=== PATIENT | male | born 1995 | race Caucasian/White ===

== ENCOUNTER 2019-09-12 08:55 | Outpatient (CLI) | payer BC, SELFPAY ==
[2019-09-13 11:53] LABS: COVID-19 RT-PCR UVMMC Result Negative (Negative)
== END 2019-09-12 09:15 ==
PROVIDERS: Visit Provider Family Medicine
DX: J02.9 Acute pharyngitis, unspecified (principal)
CPT/HCPCS: U0003

== ENCOUNTER 2020-01-20 12:06 | Inpatient (IN) | payer BC, SELFPAY ==
[2020-01-20] VITALS (129 sets, daily range): BP systolic 57–127; BP diastolic 35–96; PULSE 56–109; RESP 11–30; TEMP 36.4–36.9; O2SAT 79–99
--- NOTE | 2020-01-20 12:15 | RT.EKG_ITS ---
APPROVED REPORT Exam: Resting ECG Patient Location: E HR:79 bpm ECG Measurements Heart Rate 79 AXIS TN 155 P 6 QRSd 82 QRS 33 QT 361 T 34 QTc 414 Conclusion Sinus rhythm...normal P axis, V-rate 60- 99 ST elevation suggests acute pericarditis...ST >0.10mV, ant/lat/inf' STEMI
--- NOTE | 2020-01-20 12:30 | DI.CT_ITS ---
EXAM: CT CHEST PE CTA CLINICAL HISTORY: substernal chest pain, r/o PE. TECHNIQUE: Imaging Protocol: Axial CT angiography was performed with multi-slice acquisition and mu lti-planar and/or 3D reconstructions. CONTRAST MATERIAL: Intravenous: Omnipaque 350 Contrast volume:100 mL COMPARISON: No exams were available for comparison FINDINGS: Pulmonary Arteries: No evidence of filling defect to suggest pulmonary emboli. Tracheobronchial tree: Patent where visualized. Mediastinum and Lilly: No dominant adenopathy or fluid collection. Pulmonary parenchyma: No consolidation or dominant measurable mass. No architectural distortion. Pleura: No effusion or pneumothorax. Heart: The heart is not dilated. No coronary artery calcifications are seen. No pericardial effusion. Aorta: Thoracic aorta non-dilated. Upper abdomen: Unremarkable. Bones: Normal. Soft tissues: Unremarkable. IMPRESSION: No evidence of pulmonary embolism, thoracic aortic dissection or aneurysm. RADIATION DOSE DELIVERED: 456.28mGy.cm Total DLP DATA REPOSITORY: All CT scans at this facility are submitted to the National Radiology Data Registry (NRDR) Dose Index Registry (DIR) with the [employer] (ACR). RADIATION OPTIMIZATION: All CT scans at this facility use at least one of these dose optimization te chniques: automated exposure control; mA and/or kV adjustment per patient size (includes targeted exa ms where dose is matched to clinical indication); or iterative reconstruction.
--- NOTE | 2020-01-20 12:30 | ED.GENADUL_ITS ---
Discharge Plan Disposition Patient Disposition: [facility] INPATIENT Condition: Stable Discharge Details Clinical Impression: Pericarditis Admit Date/Time: 01/20/20 18:37 Admit Provider: Concepcion West Attending Provider: Concepcion West Primary Care Provider: None,None ED Provider: Rae Christian Discharge Data Discharge Date/Time-TO BE ENTERED AT DEPARTURE: 01/20/20 19:30 Medical Decision Making <Rae Christian DO - Last Filed: 01/22/20 09:13> 1230 -- 24-year-old male with no significant past medical history presents with chest pain with radiation to the shoulder since awakening this morning. Admits to neck pain and headache a few days ago that is since resolved. He denies any cough or fever. EKG notes a rate of 79, sinus with [address] elevation in inferior and anterior lateral leads without reciprocal changes. Concern for STEMI versus pericarditis. Patient has no significant cardiac risk factors and with some preceding musculoskeletal pain, making pericarditis possibly more likely. Screening labs and CT chest obtained. Will give aspirin and Toradol. Case discussed with [facility] cardiology who reviewed images and agree that as there is no reciprocal changes, without cardiac risk factors and considering patient's age, doubt STEMI and do not recommend STEMI treatment or lytics at this time. Requesting CRP and ESR. Recommend repeat EKG stat. 1255 -- Troponin significantly elevated at 6.75. Repeat EKG notes a rate of 79, sinus with slight increase in ST elevation in inferior leads. No reciprocal changes noted. 1305 -- Case discussed again with [facility] cardiology who now agrees with plan for Plavix, heparin and nitro sublingual as needed. Do not recommend lytics at this time. No beds available at this time. 1322 --discussed with [facility] cardiology -feels this is more consistent with perimyocarditis and no lytics recommended. Recommends stopping heparin drip. Attempted to obtain formal echocardiogram but no tech available. Bedside echo done which noted normal cardiac wall motion without evidence of effusion. 1510 --discussed with [facility] cardiology who feels that patient does not require urgent transfer as he feels this is more perimyocarditis. Recommend treatment with colchicine and NSAIDs. 1530 --discussed with [facility] cardiology who accepts patient for transfer but no bed available at this time. Accepting physician Dr. Baker for transfer once a bed available. Does not want colchicine or NSAIDs at this time. Agreeable with plan for stopping heparin drip. Repeat troponin 14.68. No other acute recommendations at this time. Discussed elevation in second troponin with both [facility] and [facility] cardiology and no other acute recommendations or indication for emergent transfer at this time. Discussed with hospitalist who accepts patient for admission pending transfer to [facility]. Medical Records Medical records reviewed: Yes I reviewed the patient's medical records. Imaging Data Radiologic Study: Radiologist's impression: CT CHEST PE CTA CLINICAL HISTORY: substernal chest pain, r/o PE. TECHNIQUE: Imaging Protocol: Axial CT angiography was performed with multi- slice acquisition and multi-planar and/or 3D reconstructions. CONTRAST MATERIAL: Intravenous: Omnipaque 350 Contrast volume:100 mL COMPARISON: No exams were available for comparison FINDINGS: Pulmonary Arteries: No evidence of filling defect to suggest pulmonary emboli. Tracheobronchial tree: Patent where visualized. Mediastinum and Lilly: No dominant adenopathy or fluid collection. Pulmonary parenchyma: No consolidation or dominant measurable mass. No architectural distortion. Pleura: No effusion or pneumothorax. Heart: The heart is not dilated. No coronary artery calcifications are seen. No pericardial effusion. Aorta: Thoracic aorta non-dilated. Upper abdomen: Unremarkable. Bones: Normal. Soft tissues: Unremarkable. IMPRESSION: No evidence of pulmonary embolism, thoracic aortic dissection or aneurysm. Lab Data Lab results reviewed: Yes I reviewed the patient's lab results. Labs: Laboratory Tests Range/Units 01/20/20 01/20/20 01/20/20 12:30 12:30 12:30 WBC (4.4-10.8) 10^3/uL 5.74 RBC (4.36-5.78) 10^6/uL 5.10 Hgb (13.5-17.5) g/dL 15.0 Hct (40.0-50.0) % 45.0 MCV (80-95) fL 88.2 MCH (27.0-33.0) pg 29.4 MCHC (32.0-36.0) % 33.3 RDW (11.8-14.1) % 12.2 Plt Count (130-400) 10^3/uL 265 MPV (8.0-11.0) fL 8.8 Immature Gran % 0.2 Neutrophils % 52.9 Lymphocytes % 23.3 Monocytes % 16.2 Eosinophils % 7.1 Basophils % 0.3 Nucleated RBC % % 0 Absolute Neutrophils (1.2-6.7) 10^3/uL 3.03 Absolute Lymphocytes (1.2-3.4) 10^3/uL 1.34 Absolute Monocytes (0.1-0.8) 10^3/uL 0.93 H Absolute Eosinophils (0.0-0.7) 10^3/uL 0.41 Absolute Basophils (0.0-0.2) 10^3/uL 0.02 ESR (0-15) mm/hr PT (9.3-11.0) sec 10.4 INR (0.9-1.1) 1.0 APTT (21.0-27.5) sec 22.8 Sodium (136-145) mmol/L 141 Potassium (3.5-5.1) mmol/L 4.1 Chloride (98-107) mmol/L 104 Carbon Dioxide (21.0-32.0) mmol/L 27.7 Anion Gap (3-11) mmol/L 9.3 BUN (7-18) mg/dL 14 Creatinine (0.70-1.30) mg/dL 0.92 Estimated GFR/1.73 m2 (mL/min/1.73m2) >= 60.00 Glucose (74-106) mg/dL 90 Calcium (8.5-10.1) mg/dL 8.8 Magnesium (1.8-2.4) mg/dL 2.1 Total Bilirubin (0.2-1.0) mg/dL 0.5 AST (15-37) U/L 84 H ALT (16-63) U/L 187 H Alkaline Phosphatase (46-116) U/L 114 Creatine Kinase (39-308) U/L Troponin I (<0.06) ng/mL 6.75 H* C-Reactive Protein (0.0-0.3) mg/dL Total Protein (6.4-8.2) g/dL 7.3 Albumin (3.4-5.0) g/dL 4.0 Lipase (73-393) U/L Range/Units 01/20/20 01/20/20 01/20/20 12:30 12:30 12:30 WBC (4.4-10.8) 10^3/uL RBC (4.36-5.78) 10^6/uL Hgb (13.5-17.5) g/dL Hct (40.0-50.0) % MCV (80-95) fL MCH (27.0-33.0) pg MCHC (32.0-36.0) % RDW (11.8-14.1) % Plt Count (130-400) 10^3/uL MPV (8.0-11.0) fL Immature Gran % Neutrophils % Lymphocytes % Monocytes % Eosinophils % Basophils % Nucleated RBC % % Absolute Neutrophils (1.2-6.7) 10^3/uL Absolute Lymphocytes (1.2-3.4) 10^3/uL Absolute Monocytes (0.1-0.8) 10^3/uL Absolute Eosinophils (0.0-0.7) 10^3/uL Absolute Basophils (0.0-0.2) 10^3/uL ESR (0-15) mm/hr 8 PT (9.3-11.0) sec INR (0.9-1.1) APTT (21.0-27.5) sec Sodium (136-145) mmol/L Potassium (3.5-5.1) mmol/L Chloride (98-107) mmol/L Carbon Dioxide (21.0-32.0) mmol/L Anion Gap (3-11) mmol/L BUN (7-18) mg/dL Creatinine (0.70-1.30) mg/dL Estimated GFR/1.73 m2 (mL/min/1.73m2) Glucose (74-106) mg/dL Calcium (8.5-10.1) mg/dL Magnesium (1.8-2.4) mg/dL Total Bilirubin (0.2-1.0) mg/dL AST (15-37) U/L ALT (16-63) U/L Alkaline Phosphatase (46-116) U/L Creatine Kinase (39-308) U/L Troponin I (<0.06) ng/mL C-Reactive Protein (0.0-0.3) mg/dL 0.93 H Total Protein (6.4-8.2) g/dL Albumin (3.4-5.0) g/dL Lipase (73-393) U/L 82 Range/Units 01/20/20 01/20/20 12:30 15:30 WBC (4.4-10.8) 10^3/uL RBC (4.36-5.78) 10^6/uL Hgb (13.5-17.5) g/dL Hct (40.0-50.0) % MCV (80-95) fL MCH (27.0-33.0) pg MCHC (32.0-36.0) % RDW (11.8-14.1) % Plt Count (130-400) 10^3/uL MPV (8.0-11.0) fL Immature Gran % Neutrophils % Lymphocytes % Monocytes % Eosinophils % Basophils % Nucleated RBC % % Absolute Neutrophils (1.2-6.7) 10^3/uL Absolute Lymphocytes (1.2-3.4) 10^3/uL Absolute Monocytes (0.1-0.8) 10^3/uL Absolute Eosinophils (0.0-0.7) 10^3/uL Absolute Basophils (0.0-0.2) 10^3/uL ESR (0-15) mm/hr PT (9.3-11.0) sec INR (0.9-1.1) APTT (21.0-27.5) sec Sodium (136-145) mmol/L Potassium (3.5-5.1) mmol/L Chloride (98-107) mmol/L Carbon Dioxide (21.0-32.0) mmol/L Anion Gap (3-11) mmol/L BUN (7-18) mg/dL Creatinine (0.70-1.30) mg/dL Estimated GFR/1.73 m2 (mL/min/1.73m2) Glucose (74-106) mg/dL Calcium (8.5-10.1) mg/dL Magnesium (1.8-2.4) mg/dL Total Bilirubin (0.2-1.0) mg/dL AST (15-37) U/L ALT (16-63) U/L Alkaline Phosphatase (46-116) U/L Creatine Kinase (39-308) U/L 301 Troponin I (<0.06) ng/mL 14.68 H* C-Reactive Protein (0.0-0.3) mg/dL Total Protein (6.4-8.2) g/dL Albumin (3.4-5.0) g/dL Lipase (73-393) U/L ECG Data Attestation: I personally reviewed and interpreted this ECG (s) as follows: Interpretation: #1 -- Rate of 79, sinus, [address] elevation versus LETICIA in V3 through V6, 2 and aVF. No old EKG to compare. No depression or reciprocal changes. MO 155. QRS 82. QTc 414. #2 -- Rate of 69, sinus, [address] elevation in V3 through V6 and aVF. No old EKG to compare. MO 151. QRS 77. QTc 419. #3 --Rate of 69, sinus, [address] elevation in lead II, 5, aVF, V3 through V6, no significant change from previous EKG. MO 146. QRS 81. QTc 427. <Dipesh Moses MD - Last Filed: 01/20/20 17:10> I interpreted EKG on arrival and immediately communicated interpretation to treating physician Dr. Christian. I was otherwise not involved in the care of this patient. HPI <Rae Christian DO - Last Filed: 01/22/20 09:13> General Mode of arrival: ambulatory . Date/Time Provider Initiated Documentation: 01/20/20 12:28 . Limitations to Documentation: no limitations . Information obtained by: patient . HPI Narrative: Patient is a 24-year-old male with history of asthma who presents for chest pain that he awoke with this morning. He describes the pain as constant, aching and occasionally worse with deep breath. He states the pain is currently 7/10. He states the pain radiates to both of his shoulders. He has not taken any medication for pain today. He works as a [employer] and denies any known injury or exposure to coronavirus. He states he works at the [employer] and denies any known cases of coronavirus. He states a few days ago he had some headache and neck pain but denies this currently. He denies fever, cough, nausea, vomiting, shortness of breath, urinary symptoms, diarrhea, dizziness. Related Data Home Medications Medication Instructions Recorded Confirmed albuterol mcg INHALATION PRN 01/20/20 01/20/20 Allergies Allergy/AdvReac Type Severity Reaction Status Date / Time No Known Allergies Allergy Unverified 01/20/20 12:38 Review of Systems <Rae Christian DO - Last Filed: 01/22/20 09:13> All systems reviewed & are unremarkable except as noted in HPI and below Constitutional Constitutional: Reports as per HPI, Denies chills and Denies fever(s) Eyes Eyes: Denies blurry vision ENT Ears, Nose, Mouth, and Throat: Denies dizziness, Denies sore throat and Denies throat swelling Cardiovascular Cardiovascular: Reports chest pain and Denies dyspnea Respiratory Respiratory: Denies cough and Denies dyspnea Gastrointestinal Gastrointestinal: Denies abdominal pain, Denies diarrhea and Denies vomiting Genitourinary Genitourinary: Denies hematuria and Denies dysuria Musculoskeletal Musculoskeletal: Denies back pain and Denies numbness Integumentary/Breasts Skin/Breast: Denies lesions and Denies rash Neurologic Neurologic: Denies dizziness, Denies localized weakness and Denies numbness Allergic/Immunologic Allergic/Immunologic: Denies throat swelling PFSH <Rae Christian DO - Last Filed: 01/22/20 09:13> Medical History (Updated 01/20/20 @ 19:11 by Concepcion West MD) Asthma Surgical History (Updated 01/20/20 @ 18:59 by Concepcion West MD) History of orchiectomy, unilateral h/o testicular torsion [place] teeth extracted Social History Smoking/Tobacco Use Status: Never Smoking risk assessment performed?: Yes Alcohol Intake: current Alcohol Intake frequency: a few times a month Substance use type: does not use Do you feel safe at home: Yes Do you feel safe in your relationship?: Yes Exam <Rae Christian DO - Last Filed: 01/22/20 09:13> Const General: cooperative and healthy appearing Orientation: alert and awake [facility] [place] Head: normal to inspection Ears: hearing grossly normal bilaterally and external ears normal General nose exam: external nose normal Face and sinus: normal facial exam Mouth: oral mucosae normal Teeth and gingiva: dentition normal Throat: posterior oropharynx normal Eyes General: appearance normal, both eyes and all related structures Eyelids: eyelids normal Pupils: PERRL EOM: EOM intact bilaterally Neck Neck: normal visual inspection Lymphatic: no lymphadenopathy noted Chest Chest: normal inspection of the chest, normal palpation of entire chest wall and no tenderness Resp Effort & Inspection: normal respiratory effort and able to speak in complete sentences Auscultation: clear to auscultation bilaterally Cardio Rate: regular rate Rhythm: regular rhythm GI Inspection: normal to inspection Palpation: soft, not firm, no guarding, no hepatosplenomegaly, no masses and nontender Auscultation: normal bowel sounds Back/Spine/Pelvis Back: no CVA tenderness Skin General skin exam: no rashes or lesions noted Neuro General: patient alert and patient awake Cognition: normal cognition Speech: speech normal Gait: normal gait Motor: muscle tone normal throughout Sensory Exam: no sensory deficits noted Extrem General: normal to inspection, full ROM and capillary refill normal Psych Appearance: grossly normal Mental Status: mental status grossly normal Speech and Movement: speech and movement normal Affect: normal affect Thought Process: normal
[2020-01-20 12:39] LABS: Abs Immature Grans 0.01 10^3/uL (0.0-0.06); Absolute Basophil Count 0.02 10^3/uL (0.0-0.2); Absolute Eosinophil Count 0.41 10^3/uL (0.0-0.7); Absolute Lymphocyte Count 1.34 10^3/uL (1.2-3.4); Absolute Monocyte Count 0.93 10^3/uL (0.1-0.8); Absolute Neutrophil Count 3.03 10^3/uL (1.2-6.7); Basophils % 0.3; Eosinophils % 7.1; Immature Grans % 0.2; Lymphocytes % 23.3; MCH 29.4 pg (27.0-33.0); MCHC 33.3 % (32.0-36.0); MCV 88.2 fL (80-95); MPV 8.8 fL (8.0-11.0); Monocytes % 16.2; Neutrophils % 52.9; Nucleated RBC 0 %; Platelet Count 265 10^3/uL (130-400); RDW 12.2 % (11.8-14.1); RDW-SD 40.2 fL; WBC 5.74 10^3/uL (4.4-10.8)
--- NOTE | 2020-01-20 12:45 | RT.EKG_ITS ---
APPROVED REPORT Exam: Resting ECG Patient Location: E HR:79 bpm ECG Measurements Heart Rate 79 AXIS NE 151 P 31 QRSd 77 QRS 59 QT 365 T 44 QTc 419 Conclusion Sinus rhythm...normal P axis, V-rate 60- 99 Inferolateral infarct, acute...ST>.10mV, inf-lat leads Borderline ST elevation, anterior leads...ST >0.15mV in V1-V4. 1mm ST elevation in II, III, aVF , V3-6. No significant NE depression. Concern for STEMI vs pericardiitis.
[2020-01-20 12:46] LABS: PTT Activated 22.8 sec (21.0-27.5); Prothrombin Time 10.4 sec (9.3-11.0)
[2020-01-20 12:53] LABS: ALT 187 U/L (16-63); AST 84 U/L (15-37); Alkaline Phosphatase 114 U/L (46-116); Anion Gap 9.3 mmol/L (3-11); BUN 14 mg/dL (7-18); Bilirubin, Total 0.5 mg/dL (0.2-1.0); CO2 27.7 mmol/L (21.0-32.0); CREATININE 0.92 mg/dL (0.70-1.30); Calcium 8.8 mg/dL (8.5-10.1); Chloride 104 mmol/L (98-107); Glucose 90 mg/dL (74-106); Magnesium 2.1 mg/dL (1.8-2.4); Potassium 4.1 mmol/L (3.5-5.1); Sodium 141 mmol/L (136-145); Total Protein 7.3 g/dL (6.4-8.2)
[2020-01-20] MEDS: Aspirin 325 MG TAB PO (12:55)
[2020-01-20] MEDS: Ketorolac 30 MG/ML VIAL IVP (12:57)
[2020-01-20 12:58] LABS: Troponin I 6.75 ng/mL (<0.06)
[2020-01-20 13:07] LABS: Lipase 82 U/L (73-393)
[2020-01-20 13:08] LABS: C-Reactive Protein 0.93 mg/dL (0.0-0.3)
[2020-01-20] MEDS: Normal Saline - Diluent 50 ML VIAL IV (13:12)
[2020-01-20] MEDS: Omnipaque 350 MG/ML 100 ML BTL IJ (13:12)
[2020-01-20] MEDS: Normal Saline Flush 10 ML SYR IVP (13:12)
[2020-01-20] MEDS: nitroGLYcerin 0.4 MG TAB SL (13:15)
[2020-01-20 13:42] LABS: ESR 8 mm/hr (0-15)
[2020-01-20 14:07] LABS: Creatine Kinase 301 U/L (39-308)
[2020-01-20] MEDS: ACETAMINOPHEN 1,000 MG/100 ML BTL 400 MG IVPB (14:12)
--- NOTE | 2020-01-20 14:45 | RT.EKG_ITS ---
APPROVED REPORT Exam: Resting ECG Patient Location: E HR:69 bpm ECG Measurements Heart Rate [address] 146 P 18 QRSd 81 QRS 62 QT 400 T 51 QTc 427 Conclusion Sinus rhythm...normal P axis, V-rate 60- 99 Inferolateral infarct, acute...ST>.10mV, inf-lat leads Borderline ST elevation, anterior leads...ST >0.15mV in V1-V4. 1mm ST elevation in II, III, aVF, V3-6. I have reviewed and interpreted ECG and agree with software generated interpretation.
[2020-01-20 15:54] LABS: Troponin I 14.68 ng/mL (<0.06)
--- NOTE | 2020-01-20 17:08 | NUR.NOTE ---
Spoke with pts BERENICE Abernathy ( Emergency Contact) Gave and update of plan of care and results that we have received. Both Pt and GF stated that the Pt mother is NOT to get information. The only person we are able to give information to is the pt BERENICE Abernathy.
--- NOTE | 2020-01-20 18:44 | W.PM.HP.N ---
Date of service: 01/20/20 Time of Service: 17:10 Assessment and Plan Assessment and plan (1) Chest pain: Status: Acute Assessment and plan: I agree that this is likely min/myocarditis. The patient should be transferred to a tertiary care facility [facility]; however, no beds are available tonight in local tertiary care centers, and the patient is choosing to stay at our facility, recognizing the risks of staying at a facility with its inadequate resources. We do not have cardiology in-house, or echo imaging capabilities. If the patient has myocarditis from COVID-19, this can result in arrhythmias/shock/, and the patient is extremely high risk to stay here with no cardiology coverage in-house. We will continue to trend troponins. We will continue aspirin, plavix, prn nitroglycerin. Cardiac monitoring in the ICU. Rx'ed toradol. Await COVID-19 PCR. Airborne/contact precautions. (2) Elevated troponin: Status: Acute Assessment and plan: As above (3) Abnormal EKG: Status: Acute Assessment and plan: As above (4) Person under investigation for COVID-19: Status: Acute Assessment and plan: As above (5) Abnormal LFTs: Status: Acute Assessment and plan: Could also be part of COVID-19 picture. Will trend. Will obtain hepatitis panel. (6) DVT prophylaxis: Status: Acute Assessment and plan: SC lovenox, teds, SCDs (7) Discharge planning issues: Status: Acute Assessment and plan: Full code. Accepted in transfer at [facility] by Dr Baker, pending bed availability. Patient is a PUI for COVID-19, getting admitted to the ICU. Total Critical Care Time 1 hour. 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 The patient states that a couple of days prior to his presentation he had a headache that lasted all day which was associated with feeling of congested sinuses, which is unusual for him. He states that he has not had any fevers, changes to sense of taste or smell, runny nose, sore throat, shortness of breath, cough, nausea, or diarrhea. He has not had any confirmed positive COVID-19 contacts, and all of the residents of his correctional facility, including the quarantine unit, have tested negative. About one month ago he was working at the [employer], where a few COVID-19 positive cases did get reported in the last month. Mr Aleksandra's EKG was significant for anterior/inferolateral WV depressions [address] segment elevatations, concerning for STEMI, and his first troponin I was 6.75. Per [facility] cardiology recommendations, he was loaded with plavix, aspirin, sublingual nitroglycerin and initiated on heparin gtt. No beds were available at [facility], so a transfer to [facility] was sought, where the case was felt to be min/myocarditis and urgent transfer was not felt necessary. However, patient's repeat troponin went up to 14.68. His EKG has not changed, and he is chest pain free at this time. [facility] accepted the patient in transfer for tomorrow (Dr Baker is the accepting provider), but no beds would be available tonight. [facility] was also notified of the doubling of troponin, but did not offer a bed to the patient. I have discussed the fact that we do not have the necessary resources to care for this patient at our facility on the weekend (cardiology coverage, echo, etc) and that ideally a transfer tonight would be recommended. I offered to have the patient transferred to a facility in [place], if he so chose (we discussed risks and benefits), but the patient has made a decision to stay at our facility until a bed became available at [facility]. Review of Systems All systems reviewed & are unremarkable except as noted in HPI and below [facility] Medical History (Updated 01/20/20 @ 19:11 by Concepcion West MD) Asthma Surgical History (Updated 01/20/20 @ 18:59 by Concepcion West MD) History of orchiectomy, unilateral h/o testicular torsion [place] teeth extracted Social History Smoking/Tobacco Use Status: Never Smoking risk assessment performed?: Yes Alcohol Intake: current Alcohol Intake frequency: a few times a month Substance use type: does not use Do you feel safe at home: Yes Do you feel safe in your relationship?: Yes Meds Home Medications and Allergies Home Medications Medication Instructions Recorded Confirmed Type albuterol mcg INHALATION PRN 01/20/20 01/20/20 History Allergies Allergy/AdvReac Type Severity Reaction Status Date / Time No Known Allergies Allergy Unverified 01/20/20 12:38 Exam Narrative Exam Narrative: General: Very pleasant male who looks comfortable in bed, does not look ill, A&Ox3, good history provider Neurological: A&Ox3, no focal deficits Psychiatric: appropriate speech pattern/content Skin: visible skin intact HEENT: Atraumatic, normocephalic, EOMI, patient is wearing a mask - I did not examine his oropharynx, no lymphadenopathy, goiter or JVD Cardiovascular: RRR, no m/r/g Lungs: CTAB Gastrointestinal: soft, nontender, nondistended Genitourinary: deferred Extremities: no e/c/c BLE's, 2+ pedal pulses B Results Imaging Additional studies: CTA chest: No evidence of pulmonary embolism, thoracic aortic dissection or aneurysm. EKG #1: HR 78, inferiolateral WV segment depression and ST elevations (1 mm) EKG #2: NSR, HR 79, unchanged EKG #3: NSR, HR 69, unchanged Labs Result diagrams: 01/20/20 12:30 01/20/20 12:30 Labs: Laboratory Results - last 24 hr 01/20/20 01/20/20 01/20/20 12:30 12:30 12:30 WBC 5.74 RBC 5.10 Hgb 15.0 Hct 45.0 MCV 88.2 MCH 29.4 MCHC 33.3 RDW 12.2 Plt Count 265 MPV 8.8 Immature Gran % 0.2 Neutrophils % 52.9 Lymphocytes % 23.3 Monocytes % 16.2 Eosinophils % 7.1 Basophils % 0.3 Nucleated RBC % 0 Absolute Neutrophils 3.03 Absolute Lymphocytes 1.34 Absolute Monocytes 0.93 H Absolute Eosinophils 0.41 Absolute Basophils 0.02 ESR PT 10.4 INR 1.0 APTT 22.8 Sodium 141 Potassium 4.1 Chloride 104 Carbon Dioxide 27.7 Anion Gap 9.3 BUN 14 Creatinine 0.92 Estimated GFR/1.73 m2 >= 60.00 Glucose 90 Calcium 8.8 Magnesium 2.1 Total Bilirubin 0.5 AST 84 H ALT 187 H Alkaline Phosphatase 114 Creatine Kinase Troponin I 6.75 H* C-Reactive Protein Total Protein 7.3 Albumin 4.0 Lipase 01/20/20 01/20/20 01/20/20 12:30 12:30 12:30 WBC RBC Hgb Hct MCV MCH MCHC RDW Plt Count MPV Immature Gran % Neutrophils % Lymphocytes % Monocytes % Eosinophils % Basophils % Nucleated RBC % Absolute Neutrophils Absolute Lymphocytes Absolute Monocytes Absolute Eosinophils Absolute Basophils ESR 8 PT INR APTT Sodium Potassium Chloride Carbon Dioxide Anion Gap BUN Creatinine Estimated GFR/1.73 m2 Glucose Calcium Magnesium Total Bilirubin AST ALT Alkaline Phosphatase Creatine Kinase Troponin I C-Reactive Protein 0.93 H Total Protein Albumin Lipase 82 01/20/20 01/20/20 12:30 15:30 WBC RBC Hgb Hct MCV MCH MCHC RDW Plt Count MPV Immature Gran % Neutrophils % Lymphocytes % Monocytes % Eosinophils % Basophils % Nucleated RBC % Absolute Neutrophils Absolute Lymphocytes Absolute Monocytes Absolute Eosinophils Absolute Basophils ESR PT INR APTT Sodium Potassium Chloride Carbon Dioxide Anion Gap BUN Creatinine Estimated GFR/1.73 m2 Glucose Calcium Magnesium Total Bilirubin AST ALT Alkaline Phosphatase Creatine Kinase 301 Troponin I 14.68 H* C-Reactive Protein Total Protein Albumin Lipase Last Vital Signs Temp 36.9 C 01/20/20 12:27 Pulse 68 01/20/20 17:11 Resp 20 01/20/20 17:11 BP 115/71 01/20/20 17:11 Pulse Ox 87 L 01/20/20 17:11 COVID-19 Screening Have you,or household,traveled outside [place] in last 14 days?: No Had IN PERSON contact w/suspected or confirmed C-19 person: No
[2020-01-20 18:59] LABS: *AMPHETAMINES SCREEN URINE Negative (Negative); *BARBITURATES SCREEN URINE Negative (Negative); *BENZODIAZEPINES SCREEN URINE Negative (Negative); Cannabinoids THC Negative (Negative); Cocaine Screen,Urine Negative (Negative); METHADONE URINE SCREEN Negative (Negative); OPIATES URINE SCREEN Negative (Negative); Tricyclic Antidepressants Negative (Negative)
--- NOTE | 2020-01-20 19:00 | RT.EKG_ITS ---
APPROVED REPORT Exam: Resting ECG Patient Location: E HR:77 bpm ECG Measurements Heart Rate 77 AXIS KS 144 P 14 QRSd 83 QRS 58 QT 384 T 49 QTc 434 Conclusion Sinus rhythm...normal P axis, V-rate 60- 99 Inferior infarct, acute...ST>0.10mV, T upright, II III aVF ST elevation, consider lateral injury...ST >0.10mV, I aVL V5 V6. 1mm ST elevation in II, III, aVF, V3-6. I have reviewed and interpreted ECG and agree with software generated interpretation.
[2020-01-20 19:17] LABS: FREE T4 1.05 ng/dL (0.76-1.46)
[2020-01-20 19:35] LABS: INR 1.1 (0.9-1.1); Prothrombin Time 10.6 sec (9.3-11.0)
[2020-01-20 19:39] LABS: NT-proBNP 352 pg/mL (<300)
[2020-01-20 19:42] LABS: Troponin I 16.15 ng/mL (<0.06)
[2020-01-20 19:44] LABS: Procalcitonin < 0.1 ng/mL
[2020-01-20 19:46] LABS: D-Dimer 516 ng/mlFEU (<500)
[2020-01-20 19:49] LABS: Ferritin 113 ng/mL (26-388)
[2020-01-20] MEDS: Normal Saline 1,000 ML 125 ML IV (22:00)
[2020-01-20 22:30] LABS: Troponin I 13.35 ng/mL (<0.06)
[2020-01-20 23:57] LABS: Bilirubin Negative (Negative); Blood Negative (Negative); Clarity Clear (Clear); Glucose Negative (Negative); Ketones Negative (Negative); Leukocyte Esterase Negative (Negative); Nitrite Negative (Negative); Urobilinogen 0.2 EU/dL (Up TO 0.2)
[2020-01-21] VITALS (19 sets, daily range): BP systolic 94–128; BP diastolic 38–69; PULSE 46–94; RESP 14–22; TEMP 36.4–36.6; O2SAT 95–98
[2020-01-21] MEDS: Normal Saline 1,000 ML 125 ML IV (05:46)
[2020-01-21 06:53] LABS: Hemoglobin A1C 5.2 % (<5.7)
[2020-01-21 06:54] LABS: Calculated LDL 94 mg/dL (<100); Cholesterol 142 mg/dL (<200); HDL Cholesterol 34 mg/dL (40-60); Triglyceride 73 mg/dL (<150)
[2020-01-21 07:00] LABS: Troponin I 7.95 ng/mL (<0.06)
[2020-01-21 07:02] LABS: ALT 154 U/L (16-63); AST 69 U/L (15-37); Albumin 3.6 g/dL (3.4-5.0); Alkaline Phosphatase 107 U/L (46-116); Anion Gap 9.6 mmol/L (3-11); BUN 13 mg/dL (7-18); Bilirubin, Direct 0.19 mg/dL (0.00-0.20); Bilirubin, Total 0.9 mg/dL (0.2-1.0); CO2 27.4 mmol/L (21.0-32.0); CREATININE 0.93 mg/dL (0.70-1.30); Calcium 8.2 mg/dL (8.5-10.1); Chloride 104 mmol/L (98-107); Glucose 69 mg/dL (74-106); Potassium 3.9 mmol/L (3.5-5.1); Sodium 141 mmol/L (136-145); Total Protein 6.7 g/dL (6.4-8.2)
[2020-01-21 07:08] LABS: C-Reactive Protein 0.82 mg/dL (0.0-0.3)
--- NOTE | 2020-01-21 09:06 | PDOC.CMIN ---
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 Resides in [place], [place] with significant other, Ramya. Independent at baseline in community. CURRENT FUNCTIONAL STATUS:: Fernando is lying on his bed in the ICU, awaiting transfer. RN is discussing current status with his significant other via phone. ADVANCE DIRECTIVES:: None on file at [facility]. Has patient been provided with info about the portal/API?: No Did the patient sign up for the portal?: No CODE STATUS:: Full Code INSURANCE COVERAGE / FINANCIAL ISSUES:: BC/BS CURRENT HOME/COMMUNITY SERVICES/EQUIPMENT:: None, currently. POTENTIAL DISCHARGE NEEDS:: [facility] Transfer coordination. ANTICIPATED BARRIERS TO DISCHARGE:: Bed availability at [facility]. TRANSPORTATION:: EMS PLAN:: Fernando will be transferred to [facility] when a bed becomes available. He will transport via EMS.
[2020-01-21] MEDS: Clopidogrel 75 MG TAB PO (09:15)
[2020-01-21] MEDS: Enoxaparin 40 MG/0.4 ML SYR SC (09:15)
[2020-01-21] MEDS: Aspirin E.C. 81 MG TABEC PO (09:15)
--- NOTE | 2020-01-21 09:30 | RT.EKG_ITS ---
APPROVED REPORT Exam: Resting ECG Patient Location: I HR:68 bpm ECG Measurements Heart Rate 68 AXIS WV 164 P 18 QRSd 77 QRS 49 QT 413 T 42 QTc 439 Conclusion Unknown rhythm, irregular rate...V-rate 54- 84, variation>10% Lateral infarct, acute...ST >.10mV, V5 V6 [address] elevation, consider inferior injury...ST >0.08mV, II III aVF
[2020-01-21] MEDS: Pantoprazole 40 MG VIAL IVP (10:44)
--- NOTE | 2020-01-21 11:33 | PGE_ITS ---
Date of Service Date of service: 01/21/20 Time of Service: 11:33 Assessment and Plan Assessment and plan (1) Chest pain: Status: Acute Assessment and plan: This is most likely pericarditis/epicarditis. I will dc his Plavix and ASA and begin on colchicine and ibuprofen. I have had the nursing staff fax his most recent ekg to [facility]. (2) Elevated troponin: Status: Acute Assessment and plan: As above (3) Abnormal EKG: Status: Acute Assessment and plan: As above (4) Person under investigation for COVID-19: Status: Acute Assessment and plan: As above (5) Abnormal LFTs: Status: Acute Assessment and plan: Could also be part of COVID-19 picture. Will trend. Will obtain hepatitis panel. (6) DVT prophylaxis: Status: Acute Assessment and plan: SC lovenox, teds, SCDs (7) Discharge planning issues: Status: Acute Assessment and plan: Full code. Accepted in transfer at [facility] by Dr Baker, pending bed availability. Patient is a PUI for COVID-19, getting admitted to the ICU. Total Critical Care Time 1 hour. Subjective Subjective Interval history since last seen: 24-year-old male admitted last night with acute pleuritic chest pain found to have elevated troponin levels. His troponin level peaked at 16 last night is now down to 7.9. CTA of his chest was negative for any pulmonary embolism or pneumonia. His SARS-CoV-2 test is pending at this time. He currently is free of any chest discomfort. EKGs yesterday were suggestive of a pericarditis with AL depression and diffuse ST elevation. Repeat ECG this morning shows progression of his ST abnormalities and now with T wave inversions. [id number] ultrasound echocardiogram demonstrated normal LV function, some thickened pericardium but no significant pericardial effusion. [facility] cardiology was called last night and he has been accepted for transfer for cardiology consultation and management. At present he is on ASA and Plavix however, I do not feel that he has had an ischemic MO but rather has epicarditis/pericarditis although a myocarditis is not out of the possibilities, particularly if his SARS-CoV-2 comes back positive. He should be started on colchicine and ibuprofen or indomethacin and the Plavix and aspirin should be discontinued. Exam Narrative Exam Narrative: Young male lying in bed in semifowler position in no acute distress currently pain-free denying any dyspnea. Heart lungs were difficult to auscultate due to the HEPA filter in the isolation room. Bedside [id number] ultrasound was performed and demonstrated normal left ventricular function as seen in parasternal long axis and short axis and apical four-chamber views. I could not get adequate subcostal view. I did not see any appreciable pericardial effusion. Objective Last Vital Signs Temp 36.4 C L 01/21/20 09:29 Pulse 75 01/21/20 09:15 Resp 15 01/21/20 09:15 BP 117/60 01/21/20 09:15 Pulse Ox 97 01/21/20 09:29 Laboratory Results - last 24 hr 01/20/20 01/20/20 01/20/20 12:30 12:30 12:30 WBC 5.74 RBC 5.10 Hgb 15.0 Hct 45.0 MCV 88.2 MCH 29.4 MCHC 33.3 RDW 12.2 Plt Count 265 MPV 8.8 Immature Gran % 0.2 Neutrophils % 52.9 Lymphocytes % 23.3 Monocytes % 16.2 Eosinophils % 7.1 Basophils % 0.3 Nucleated RBC % 0 Absolute Neutrophils 3.03 Absolute Lymphocytes 1.34 Absolute Monocytes 0.93 H Absolute Eosinophils 0.41 Absolute Basophils 0.02 ESR PT 10.4 INR 1.0 APTT 22.8 D-Dimer Sodium 141 Potassium 4.1 Chloride 104 Carbon Dioxide 27.7 Anion Gap 9.3 BUN 14 Creatinine 0.92 Estimated GFR/1.73 m2 >= 60.00 Glucose 90 Hemoglobin A1c Calcium 8.8 Magnesium 2.1 Ferritin Total Bilirubin 0.5 Conjugated Bilirubin AST 84 H ALT 187 H Alkaline Phosphatase 114 Creatine Kinase Troponin I 6.75 H* C-Reactive Protein NT-Pro-B Natriuret Pep Total Protein 7.3 Albumin 4.0 Triglycerides Total Cholesterol LDL Cholesterol, Calc HDL Cholesterol Lipase Procalcitonin TSH Free T4 Urine Color Urine Clarity Urine pH Ur Specific [place] Urine Protein Urine Ketones Urine Blood Urine Nitrite Urine Bilirubin Urine Urobilinogen Ur Leukocyte Esterase Urine Glucose Urine Opiates Screen Urine Methadone Screen Ur Barbiturates Screen Ur Tricyclics Screen Ur Amphetamines Screen U Benzodiazepines Scrn Urine Cocaine Screen Ur THC Screen 01/20/20 01/20/20 01/20/20 12:30 12:30 12:30 WBC RBC Hgb Hct MCV MCH MCHC RDW Plt Count MPV Immature Gran % Neutrophils % Lymphocytes % Monocytes % Eosinophils % Basophils % Nucleated RBC % Absolute Neutrophils Absolute Lymphocytes Absolute Monocytes Absolute Eosinophils Absolute Basophils ESR 8 PT INR APTT D-Dimer Sodium Potassium Chloride Carbon Dioxide Anion Gap BUN Creatinine Estimated GFR/1.73 m2 Glucose Hemoglobin A1c Calcium Magnesium Ferritin Total Bilirubin Conjugated Bilirubin AST ALT Alkaline Phosphatase Creatine Kinase Troponin I C-Reactive Protein 0.93 H NT-Pro-B Natriuret Pep Total Protein Albumin Triglycerides Total Cholesterol LDL Cholesterol, Calc HDL Cholesterol Lipase 82 Procalcitonin TSH Free T4 Urine Color Urine Clarity Urine pH Ur Specific [place] Urine Protein Urine Ketones Urine Blood Urine Nitrite Urine Bilirubin Urine Urobilinogen Ur Leukocyte Esterase Urine Glucose Urine Opiates Screen Urine Methadone Screen Ur Barbiturates Screen Ur Tricyclics Screen Ur Amphetamines Screen U Benzodiazepines Scrn Urine Cocaine Screen Ur THC Screen 01/20/20 01/20/20 01/20/20 12:30 15:30 15:30 WBC RBC Hgb Hct MCV MCH MCHC RDW Plt Count MPV Immature Gran % Neutrophils % Lymphocytes % Monocytes % Eosinophils % Basophils % Nucleated RBC % Absolute Neutrophils Absolute Lymphocytes Absolute Monocytes Absolute Eosinophils Absolute Basophils ESR PT INR APTT D-Dimer Sodium Potassium Chloride Carbon Dioxide Anion Gap BUN Creatinine Estimated GFR/1.73 m2 Glucose Hemoglobin A1c Calcium Magnesium Ferritin Total Bilirubin Conjugated Bilirubin AST ALT Alkaline Phosphatase Creatine Kinase 301 Troponin I 14.68 H* C-Reactive Protein NT-Pro-B Natriuret Pep Total Protein Albumin Triglycerides Total Cholesterol LDL Cholesterol, Calc HDL Cholesterol Lipase Procalcitonin TSH 1.40 Free T4 1.05 Urine Color Urine Clarity Urine pH Ur Specific [place] Urine Protein Urine Ketones Urine Blood Urine Nitrite Urine Bilirubin Urine Urobilinogen Ur Leukocyte Esterase Urine Glucose Urine Opiates Screen Urine Methadone Screen Ur Barbiturates Screen Ur Tricyclics Screen Ur Amphetamines Screen U Benzodiazepines Scrn Urine Cocaine Screen Ur THC Screen 01/20/20 01/20/20 01/20/20 18:34 19:00 19:00 WBC RBC Hgb Hct MCV MCH MCHC RDW Plt Count MPV Immature Gran % Neutrophils % Lymphocytes % Monocytes % Eosinophils % Basophils % Nucleated RBC % Absolute Neutrophils Absolute Lymphocytes Absolute Monocytes Absolute Eosinophils Absolute Basophils ESR PT INR APTT D-Dimer Sodium Potassium Chloride Carbon Dioxide Anion Gap BUN Creatinine Estimated GFR/1.73 m2 Glucose Hemoglobin A1c Calcium Magnesium Ferritin Total Bilirubin Conjugated Bilirubin AST ALT Alkaline Phosphatase Creatine Kinase Troponin I 16.15 H* C-Reactive Protein NT-Pro-B Natriuret Pep 352 H Total Protein Albumin Triglycerides Total Cholesterol LDL Cholesterol, Calc HDL Cholesterol Lipase Procalcitonin < 0.1 TSH Free T4 Urine Color Urine Clarity Urine pH Ur Specific [place] Urine Protein Urine Ketones Urine Blood Urine Nitrite Urine Bilirubin Urine Urobilinogen Ur Leukocyte Esterase Urine Glucose Urine Opiates Screen Negative Urine Methadone Screen Negative Ur Barbiturates Screen Negative Ur Tricyclics Screen Negative Ur Amphetamines Screen Negative U Benzodiazepines Scrn Negative Urine Cocaine Screen Negative Ur THC Screen Negative 01/20/20 01/20/20 01/20/20 19:00 19:00 19:00 WBC RBC Hgb Hct MCV MCH MCHC RDW Plt Count MPV Immature Gran % Neutrophils % Lymphocytes % Monocytes % Eosinophils % Basophils % Nucleated RBC % Absolute Neutrophils Absolute Lymphocytes Absolute Monocytes Absolute Eosinophils Absolute Basophils ESR PT 10.6 INR 1.1 APTT D-Dimer 516 H Sodium Potassium Chloride Carbon Dioxide Anion Gap BUN Creatinine Estimated GFR/1.73 m2 Glucose Hemoglobin A1c Calcium Magnesium Ferritin 113 Total Bilirubin Conjugated Bilirubin AST ALT Alkaline Phosphatase Creatine Kinase Troponin I C-Reactive Protein NT-Pro-B Natriuret Pep Total Protein Albumin Triglycerides Total Cholesterol LDL Cholesterol, Calc HDL Cholesterol Lipase Procalcitonin TSH Free T4 Urine Color Urine Clarity Urine pH Ur Specific [place] Urine Protein Urine Ketones Urine Blood Urine Nitrite Urine Bilirubin Urine Urobilinogen Ur Leukocyte Esterase Urine Glucose Urine Opiates Screen Urine Methadone Screen Ur Barbiturates Screen Ur Tricyclics Screen Ur Amphetamines Screen U Benzodiazepines Scrn Urine Cocaine Screen Ur THC Screen 01/20/20 01/20/20 01/21/20 22:05 22:30 06:25 WBC RBC Hgb Hct MCV MCH MCHC RDW Plt Count MPV Immature Gran % Neutrophils % Lymphocytes % Monocytes % Eosinophils % Basophils % Nucleated RBC % Absolute Neutrophils Absolute Lymphocytes Absolute Monocytes Absolute Eosinophils Absolute Basophils ESR PT INR APTT D-Dimer Sodium Potassium Chloride Carbon Dioxide Anion Gap BUN Creatinine Estimated GFR/1.73 m2 Glucose Hemoglobin A1c Calcium Magnesium 2.0 Ferritin Total Bilirubin Conjugated Bilirubin AST ALT Alkaline Phosphatase Creatine Kinase Troponin I 13.35 H* 7.95 H* C-Reactive Protein 0.82 H NT-Pro-B Natriuret Pep Total Protein Albumin Triglycerides 73 Total Cholesterol 142 LDL Cholesterol, Calc 94 HDL Cholesterol 34 L Lipase Procalcitonin TSH Free T4 Urine Color Yellow Urine Clarity Clear Urine pH 7.0 Ur Specific [place] 1.020 Urine Protein Negative Urine Ketones Negative Urine Blood Negative Urine Nitrite Negative Urine Bilirubin Negative Urine Urobilinogen 0.2 Ur Leukocyte Esterase Negative Urine Glucose Negative Urine Opiates Screen Urine Methadone Screen Ur Barbiturates Screen Ur Tricyclics Screen Ur Amphetamines Screen U Benzodiazepines Scrn Urine Cocaine Screen Ur THC Screen 01/21/20 01/21/20 06:25 06:25 WBC RBC Hgb Hct MCV MCH MCHC RDW Plt Count MPV Immature Gran % Neutrophils % Lymphocytes % Monocytes % Eosinophils % Basophils % Nucleated RBC % Absolute Neutrophils Absolute Lymphocytes Absolute Monocytes Absolute Eosinophils Absolute Basophils ESR PT INR APTT D-Dimer Sodium 141 Potassium 3.9 Chloride 104 Carbon Dioxide 27.4 Anion Gap 9.6 BUN 13 Creatinine 0.93 Estimated GFR/1.73 m2 >= 60.00 Glucose 69 L Hemoglobin A1c 5.2 Calcium 8.2 L Magnesium Ferritin Total Bilirubin 0.9 Conjugated Bilirubin 0.19 AST 69 H ALT 154 H Alkaline Phosphatase 107 Creatine Kinase Troponin I C-Reactive Protein NT-Pro-B Natriuret Pep Total Protein 6.7 Albumin 3.6 Triglycerides Total Cholesterol LDL Cholesterol, Calc HDL Cholesterol Lipase Procalcitonin TSH Free T4 Urine Color Urine Clarity Urine pH Ur Specific [place] Urine Protein Urine Ketones Urine Blood Urine Nitrite Urine Bilirubin Urine Urobilinogen Ur Leukocyte Esterase Urine Glucose Urine Opiates Screen Urine Methadone Screen Ur Barbiturates Screen Ur Tricyclics Screen Ur Amphetamines Screen U Benzodiazepines Scrn Urine Cocaine Screen Ur THC Screen
[2020-01-21] MEDS: Ibuprofen 800 MG TAB PO (13:58)
--- NOTE | 2020-01-21 14:00 | W.PM.DS.N ---
DS: Diagnosis Discharge Diagnosis (1) Pericarditis: Status: Acute Asessment and Plan: On the day of discharge patient was started on colchicine and ibuprofen. His aspirin and Plavix were discontinued. Patient was transferred to [facility] cardiology service of Dr. Baker for further evaluation and formal echocardiography. (2) Chest pain: Status: Acute (3) Elevated troponin: Status: Acute (4) Abnormal EKG: Status: Acute (5) Person under investigation for COVID-19: Status: Acute Asessment and Plan: At the time of discharge patient remains PUI as his SARS-CoV-2 is pending at this time (6) Abnormal LFTs: Status: Acute Discharge Plan Disposition Patient Disposition: [facility] Condition: Stable Discharge Details Reason For Visit: MISTY/MYOCARDITIS, PUI Admit Date/Time: 01/20/20 18:37 Admit Provider: Concepcion West Attending Provider: Concepcion West Primary Care Provider: None,None Hospital Course Hospital Course: 24-year-old male [employer] with a past medical history of asthma presented to the emergency department with 1 day history of substernal chest pain with radiation into his shoulders. Chest pain seen to be positional with improvement with sitting upright but also with some pleuritic component with deep breathing. He had no fever or chills or cough. His symptoms were preceded by headache and sinus pain that occurred a couple days prior to his presentation. Patient is not aware of any COVID-19 contacts. Evaluation emergency department included serial EKGs lab work and CTA of his chest. CT of his chest did not show any aneurysm or acute cardiopulmonary pathology. Serial EKGs demonstrated FL depression and diffuse ST elevation suggestive of a pericarditis. CBC on admission showed no leukocytosis and no anemia. Initial troponin I level was 6.75 on admission and serial troponin I levels were monitored and he peaked at 16.15 but on the day of discharge his troponin I had come down to 7.95. His CRP was elevated at 0.93. CMP demonstrated a mild transaminitis with an AST of 84, ALT 187. His creatine kinase was normal at 301. Procalcitonin was less than 0.1. SARS-CoV-2 is pending at this time. Serial EKGs were obtained and demonstrated diffuse FL depression and ST elevation in upsloping manner. On the day of discharge his ST elevation had flattened out and his T waves were diffusely inverted. A [id number] ultrasound exam was performed on the day of discharge and demonstrated normal LV systolic function and no significant pericardial effusion. Patient was transferred to [facility] to the care of Dr. Baker. This had been previously arranged by my colleague Dr. Concepcion West. At the time of discharge patient was hemodynamically stable and currently pain-free. Patient had been treated in the emergency department with nitroglycerin and was started on aspirin and Plavix by the emergency room doctor which was continued by my colleague Dr. West. I have discontinued his nitroglycerin and aspirin Plavix and ordered a dose of ibuprofen and colchicine for what appears to be epicardial/myocarditis. Home Meds and New Rx's Prescriptions: No Action albuterol 90 mcg/actuation Aerosol INHALATION PRNRF: 0 Discharge Instructions Referrals: Rudolph Baker [ NON-[facility] STAFF PHYSICIAN] - Activity:: Activity as Tolerated Diet:: As Tolerated Discharge Orders Discharge Orders: Discharge Order (Routine); Ordered 01/21/20 Ordered By: Silvano Soriano DS: Summary Status at Discharge Functional status at discharge: independent ambulation Overall status at discharge: patient is progressing back to baseline Mental Status: mental status grossly normal Speech and Movement: speech and movement normal Mood: congruent mood Affect: normal affect Exam Narrative Exam Narrative: Young male lying in bed in semifowler position in no acute distress currently pain-free denying any dyspnea. Heart lungs were difficult to auscultate due to the HEPA filter in the isolation room. Bedside [id number] ultrasound was performed and demonstrated normal left ventricular function as seen in parasternal long axis and short axis and apical four-chamber views. I could not get adequate subcostal view. I did not see any appreciable pericardial effusion. Psych Mental Status: mental status grossly normal Speech and Movement: speech and movement normal Mood: congruent mood Affect: normal affect DS: Data Vitals/I&O Vitals and I&O: Vital Signs Temperature 36.4 C L 01/21/20 13:56 Temperature Source Temporal Artery Scan 01/21/20 13:56 Pulse 79 01/21/20 13:47 Pulse 92 H 01/21/20 13:47 Respiratory Rate 19 01/21/20 13:47 Respiratory Effort Non-Labored 01/21/20 09:29 Respiratory Depth Normal 01/21/20 09:29 Respiratory Pattern Normal 01/21/20 09:29 Blood Pressure 126/61 01/21/20 13:47 Blood Pressure Mean 75 01/21/20 13:47 Blood Pressure Position Supine 01/21/20 09:29 Pulse Oximetry 97 01/21/20 09:29 Oxygen Delivery Method Room Air 01/21/20 09:29 Oxygen Flow Rate 0 01/21/20 09:29 Pain Level 0 01/21/20 13:58 Comment 01/20/20 20:50 Intake & Output 01/20/20 01/21/20 01/21/20 23:59 11:59 23:59 Intake Total 350 / 350 1700 / 2904.167 1204.167 / 2904.167 Output Total 750 / 750 Balance 350 / 350 950 / 2154.167 1204.167 / 2154.167 Weight 97.2 kg 97.1 kg Intake: IV 350 / 350 1000 / 1904.167 904.167 / 1904.167 Oral 700 / 1000 300 / 1000 Output: Urine 750 / 750 Other: Urine Color Yellow Urine Appearance Clear Urine Odor Normal Data Completed and Pending Labs on day of discharge: Labs from last 24 hours 01/21/20 01/21/20 01/21/20 06:25 06:25 06:25 PT INR D-Dimer Sodium 141 Potassium 3.9 Chloride 104 Carbon Dioxide 27.4 Anion Gap 9.6 BUN 13 Creatinine 0.93 Estimated GFR/1.73 m2 >= 60.00 Glucose 69 L Hemoglobin A1c 5.2 Calcium 8.2 L Magnesium Ferritin Total Bilirubin 0.9 Conjugated Bilirubin 0.19 AST 69 H ALT 154 H Alkaline Phosphatase 107 Creatine Kinase Troponin I C-Reactive Protein NT-Pro-B Natriuret Pep Total Protein 6.7 Albumin 3.6 Triglycerides Total Cholesterol LDL Cholesterol, Calc HDL Cholesterol Procalcitonin TSH Free T4 Urine Color Urine Clarity Urine pH Ur Specific [place] Urine Protein Urine Ketones Urine Blood Urine Nitrite Urine Bilirubin Urine Urobilinogen Ur Leukocyte Esterase Urine Glucose Urine Opiates Screen Urine Methadone Screen Ur Barbiturates Screen Ur Tricyclics Screen Ur Amphetamines Screen U Benzodiazepines Scrn Urine Cocaine Screen Ur THC Screen Hep Bs Antigen Pending Hep Bs Antibody Pending Hep Bs Antibody, Quant Pending Hep B Core Total Ab Pending Hepatitis C Antibody Pending 01/21/20 01/20/20 01/20/20 06:25 22:30 22:05 PT INR D-Dimer Sodium Potassium Chloride Carbon Dioxide Anion Gap BUN Creatinine Estimated GFR/1.73 m2 Glucose Hemoglobin A1c Calcium Magnesium 2.0 Ferritin Total Bilirubin Conjugated Bilirubin AST ALT Alkaline Phosphatase Creatine Kinase Troponin I 7.95 H* 13.35 H* C-Reactive Protein 0.82 H NT-Pro-B Natriuret Pep Total Protein Albumin Triglycerides 73 Total Cholesterol 142 LDL Cholesterol, Calc 94 HDL Cholesterol 34 L Procalcitonin TSH Free T4 Urine Color Yellow Urine Clarity Clear Urine pH 7.0 Ur Specific [place] 1.020 Urine Protein Negative Urine Ketones Negative Urine Blood Negative Urine Nitrite Negative Urine Bilirubin Negative Urine Urobilinogen 0.2 Ur Leukocyte Esterase Negative Urine Glucose Negative Urine Opiates Screen Urine Methadone Screen Ur Barbiturates Screen Ur Tricyclics Screen Ur Amphetamines Screen U Benzodiazepines Scrn Urine Cocaine Screen Ur THC Screen Hep Bs Antigen Hep Bs Antibody Hep Bs Antibody, Quant Hep B Core Total Ab Hepatitis C Antibody 01/20/20 01/20/20 01/20/20 19:00 19:00 19:00 PT 10.6 INR 1.1 D-Dimer 516 H Sodium Potassium Chloride Carbon Dioxide Anion Gap BUN Creatinine Estimated GFR/1.73 m2 Glucose Hemoglobin A1c Calcium Magnesium Ferritin 113 Total Bilirubin Conjugated Bilirubin AST ALT Alkaline Phosphatase Creatine Kinase Troponin I C-Reactive Protein NT-Pro-B Natriuret Pep Total Protein Albumin Triglycerides Total Cholesterol LDL Cholesterol, Calc HDL Cholesterol Procalcitonin TSH Free T4 Urine Color Urine Clarity Urine pH Ur Specific [place] Urine Protein Urine Ketones Urine Blood Urine Nitrite Urine Bilirubin Urine Urobilinogen Ur Leukocyte Esterase Urine Glucose Urine Opiates Screen Urine Methadone Screen Ur Barbiturates Screen Ur Tricyclics Screen Ur Amphetamines Screen U Benzodiazepines Scrn Urine Cocaine Screen Ur THC Screen Hep Bs Antigen Hep Bs Antibody Hep Bs Antibody, Quant Hep B Core Total Ab Hepatitis C Antibody 01/20/20 01/20/20 01/20/20 19:00 19:00 18:34 PT INR D-Dimer Sodium Potassium Chloride Carbon Dioxide Anion Gap BUN Creatinine Estimated GFR/1.73 m2 Glucose Hemoglobin A1c Calcium Magnesium Ferritin Total Bilirubin Conjugated Bilirubin AST ALT Alkaline Phosphatase Creatine Kinase Troponin I 16.15 H* C-Reactive Protein NT-Pro-B Natriuret Pep 352 H Total Protein Albumin Triglycerides Total Cholesterol LDL Cholesterol, Calc HDL Cholesterol Procalcitonin < 0.1 TSH Free T4 Urine Color Urine Clarity Urine pH Ur Specific [place] Urine Protein Urine Ketones Urine Blood Urine Nitrite Urine Bilirubin Urine Urobilinogen Ur Leukocyte Esterase Urine Glucose Urine Opiates Screen Negative Urine Methadone Screen Negative Ur Barbiturates Screen Negative Ur Tricyclics Screen Negative Ur Amphetamines Screen Negative U Benzodiazepines Scrn Negative Urine Cocaine Screen Negative Ur THC Screen Negative Hep Bs Antigen Hep Bs Antibody Hep Bs Antibody, Quant Hep B Core Total Ab Hepatitis C Antibody 01/20/20 01/20/20 01/20/20 15:30 15:30 12:30 PT INR D-Dimer Sodium Potassium Chloride Carbon Dioxide Anion Gap BUN Creatinine Estimated GFR/1.73 m2 Glucose Hemoglobin A1c Calcium Magnesium Ferritin Total Bilirubin Conjugated Bilirubin AST ALT Alkaline Phosphatase Creatine Kinase 301 Troponin I 14.68 H* C-Reactive Protein NT-Pro-B Natriuret Pep Total Protein Albumin Triglycerides Total Cholesterol LDL Cholesterol, Calc HDL Cholesterol Procalcitonin TSH 1.40 Free T4 1.05 Urine Color Urine Clarity Urine pH Ur Specific [place] Urine Protein Urine Ketones Urine Blood Urine Nitrite Urine Bilirubin Urine Urobilinogen Ur Leukocyte Esterase Urine Glucose Urine Opiates Screen Urine Methadone Screen Ur Barbiturates Screen Ur Tricyclics Screen Ur Amphetamines Screen U Benzodiazepines Scrn Urine Cocaine Screen Ur THC Screen Hep Bs Antigen Hep Bs Antibody Hep Bs Antibody, Quant Hep B Core Total Ab Hepatitis C Antibody PFSH Medical History (Updated 01/20/20 @ 19:11 by Concepcion West MD) Asthma Surgical History (Updated 01/20/20 @ 18:59 by Concepcion West MD) History of orchiectomy, unilateral h/o testicular torsion [place] teeth extracted Social History Smoking/Tobacco Use Status: Never Smoking risk assessment performed?: Yes Alcohol Intake: current Alcohol Intake frequency: a few times a month Substance use type: does not use Do you feel safe at home: Yes Do you feel safe in your relationship?: Yes
[2020-01-22 09:11] LABS: SARS-CoV-2 RNA Not Detected (NotDetected); SARS-CoV-2 RNA Source Nasal/Nares
[2020-01-31 13:36] LABS: Hepatitis B surface Ag Negative (Negative); Hepatitis C Ab w Rflx HCV PCR Negative (Negative)
[2020-01-31 13:37] LABS: HBs Antibody, Qual Negative; HBs Antibody, Quant <5.0 mIU/mL
[2020-01-31 13:38] LABS: Hepatitis B Core Antibody Negative (Negative)
== END 2020-01-21 16:05 | disposition short-term general hospital (02) | DRG 316 ==
LOC: ER 19:20 → ICU 19:57
PROVIDERS: Admitting Provider Internal Medicine; Emergency Provider Physician Assistant; Visit Provider Internal Medicine
DX: I30.9 Acute pericarditis, unspecified (principal); R94.31 Abnormal electrocardiogram [ECG] [EKG]; R94.5 Abnormal results of liver function studies; J45.909 Unspecified asthma, uncomplicated; R74.8 Abnormal levels of other serum enzymes; Z11.59 Encounter for screening for other viral diseases
CPT/HCPCS: 36415; 71275; 80048; 80053; 80061; 80076; 80307; 82550; 83690; 84145; 85652; 86704; 86706; 86803; 87340; 93005; 96365; 96367; 96375; 96376; 99233; 99238; 99285; 99291; J1650; U0003; 81003; 82728; 83036; 83735; 83880; 84439; 84443; 84484; 85025; 85379; 85610; 85730; 86140; 93010; J0131; J1885; J3490

== ENCOUNTER 2025-03-15 09:54 | Outpatient (CLI) | payer BC, SELFPAY ==
[2025-03-15 10:22] LABS: HCT 44.7 % (40.0-50.0); HGB 14.9 g/dL (13.5-17.5); MCH 28.9 pg (27.0-33.0); MCHC 33.3 % (32.0-36.0); MCV 87 fL (80-95); MPV 8.6 fL (8.0-11.0); Platelet Count 293 10^3/uL (130-400); RBC 5.15 10^6/uL (4.36-5.78); RDW 12.5 % (11.8-14.1); RDW-SD 39.5 fL; WBC 8.34 10^3/uL (4.4-10.8)
[2025-03-15 10:24] LABS: ESR < 1 mm/hr (0-15)
[2025-03-15 11:20] LABS: ALT 74 U/L (10-49); AST 38 U/L (<34); Albumin 4.3 g/dL (3.2-5.0); Alkaline Phosphatase 59 U/L (46-116); Anion Gap 6.1 mmol/L (3-11); BUN 17 mg/dL (9-23); Bilirubin, Total 0.7 mg/dL (0.2-1.2); C-Reactive Protein < 0.50 mg/dL (<=0.50); CO2 28.9 mmol/L (20.0-31.0); Calcium 8.8 mg/dL (8.3-10.6); Chloride 107 mmol/L (98-107); Glucose 99 mg/dL (74-106); Potassium 4.5 mmol/L (3.5-5.1); Sodium 142 mmol/L (136-145); Total Protein 6.9 g/dL (5.7-8.2)
== END 2025-03-15 09:55 | disposition home or self-care (01) ==
LOC: LBO 09:54
PROVIDERS: PCP Nurse Practitioner Family; Visit Provider Surgery
DX: R10.11 Right upper quadrant pain (principal); K52.9 Noninfective gastroenteritis and colitis, unspecified
CPT/HCPCS: 36415; 80053; 82784; 83516; 85027; 85652; 86140